=== PATIENT | female | born 1970 | race Caucasian/White ===

== ENCOUNTER 2017-10-23 13:02 | Emergency (ER) | payer OTHER | END 2017-10-23 14:25 | disposition home or self-care (01) | LOC: FTE 13:02 | DX: R21 Rash and other nonspecific skin eruption (principal); I10 Essential (primary) hypertension; F17.210 Nicotine dependence, cigarettes, uncomplicated | CPT/HCPCS: 99282; Z7502 ==

== ENCOUNTER 2017-11-01 14:34 | Inpatient (IN) | payer OTHER ==
[2017-11-01 17:21] LABS: ABNORMAL IP MESSAGE 1; HEMATOCRIT 25.2 % (37.0-47.0); MEAN CORPUSCULAR VOLUME 62.8 fl (82.0-101.0); MEAN PLATELET VOLUME 10.1 fl (7.4-10.4); PLATELET COUNT 449 10^3/UL (140-415); RED BLOOD COUNT 4.01 10^6/ul (4.20-5.40); RED CELL DISTRIBUTION WIDTH 20.8 % (11.5-14.5)
[2017-11-01 17:21] LABS: WHITE BLOOD COUNT 5.3 10^3/ul (4.8-10.8)
[2017-11-01 17:27] LABS: HEMOGLOBIN 6.8 g/dl (12.0-16.0); POSITIVE DIFF @See below
[2017-11-01 17:28] LABS: PATH REVIEW? YES
[2017-11-01 17:40] LABS: ANION GAP 13 (8-16); BLOOD UREA NITROGEN 12 mg/dl (7-20); CALCIUM 9.1 mg/dl (8.4-10.2); CARBON DIOXIDE 27 mmol/L (21-31); CHLORIDE 107 mmol/L (97-110); CREATININE 0.72 mg/dl (0.44-1.00); GLUCOSE 98 mg/dl (70-220); POTASSIUM 3.7 mmol/L (3.5-5.1); SODIUM 143 mmol/L (135-144)
[2017-11-01 18:11] LABS: ADD MAN DIFF? NO; MONOCYTES % 7.1 % (0.0-11.0)
[2017-11-01 18:12] LABS: BASOPHILS % 0.2 % (0.0-2.0); EOSINOPHILS % 1.1 % (0.0-7.0); LYMPHOCYTES # 1.4 10^3/ul (0.8-2.9); MONOCYTE # 0.4 10^3/ul (0.3-0.9); NEUTROPHIL # 3.4 10^3/ul (1.6-7.5)
[2017-11-01] MEDS: LABETALOL 100 MG TAB PO (18:21)
[2017-11-01] MEDS: SOD CHLORIDE 0.9% 250 ML IV (18:26)
[2017-11-01] MEDS ORDERED: ACETAMINOPHEN 325 MG TAB PO (19:30)
[2017-11-01] MEDS ORDERED: ONDANSETRON 4 MG INJ IV ×2 (19:30→21:30)
[2017-11-01] MEDS ORDERED: NACL 0.9% 3 ML SYG IV (21:30)
[2017-11-01] MEDS: METOPROLOL 25 MG TAB PO (23:09)
[2017-11-02] MEDS: HYDROCODONE/APAP (5/325) TAB PO (01:57)
[2017-11-02 05:08] LABS: ADD MAN DIFF? NO
[2017-11-02 05:21] LABS: ABNORMAL IP MESSAGE 1; BASOPHILS % 0.2 % (0.0-2.0); EOSINOPHILS # 0.1 10^3/ul (0.0-0.5); EOSINOPHILS % 2.3 % (0.0-7.0); HEMATOCRIT 27.2 % (37.0-47.0); HEMOGLOBIN 8.1 g/dl (12.0-16.0); LYMPHOCYTES # 1.8 10^3/ul (0.8-2.9); LYMPHOCYTES % 34.8 % (15.0-51.0); MEAN CORPUSCULAR HEMOGLOBIN 19.8 pg (29.0-33.0); MEAN CORPUSCULAR HGB CONC 29.8 g/dl (32.0-37.0); MEAN CORPUSCULAR VOLUME 66.3 fl (82.0-101.0); MEAN PLATELET VOLUME 10.2 fl (7.4-10.4); MONOCYTE # 0.4 10^3/ul (0.3-0.9); MONOCYTES % 7.7 % (0.0-11.0); NEUTROPHIL # 2.8 10^3/ul (1.6-7.5); NEUTROPHILS % 54.6 % (39.0-77.0); PLATELET COUNT 341 10^3/UL (140-415); RED CELL DISTRIBUTION WIDTH 23.4 % (11.5-14.5)
[2017-11-02 05:21] LABS: WHITE BLOOD COUNT 5.2 10^3/ul (4.8-10.8)
[2017-11-02 05:34] LABS: IRON 71 ug/dl (35-150)
[2017-11-02 05:43] LABS: ALANINE AMINOTRANSFERASE 25 IU/L (13-69); ALBUMIN 3.2 g/dl (3.3-4.9); ALBUMIN/GLOBULIN RATIO 0.91; ALKALINE PHOSPHATASE 57 IU/L (42-121); ANION GAP 13 (8-16); ASPARTATE AMINO TRANSFERASE 27 IU/L (15-46); BILIRUBIN,INDIRECT 0.3 mg/dl (0-1.1); BILIRUBIN,TOTAL 0.3 mg/dl (0.2-1.3); BLOOD UREA NITROGEN 14 mg/dl (7-20); CALCIUM 8.8 mg/dl (8.4-10.2); CARBON DIOXIDE 25 mmol/L (21-31); CHLORIDE 109 mmol/L (97-110); CREATININE 0.78 mg/dl (0.44-1.00); GLUCOSE 96 mg/dl (70-220); MAGNESIUM 1.8 mg/dl (1.7-2.5); PHOSPHORUS 4.7 mg/dl (2.5-4.9); SODIUM 143 mmol/L (135-144); TOTAL PROTEIN 6.7 g/dl (6.1-8.1)
[2017-11-02 05:44] LABS: % IRON SATURATION 17 % SAT (22-52); TOTAL IRON BINDING CAPACITY 411 ug/dl (241-421)
[2017-11-02 05:59] LABS: POSITIVE DIFF @See below
[2017-11-02 06:11] LABS: FERRITIN 6.1 ng/ml (6.2-137.0)
[2017-11-02] MEDS: FERROUS SULFATE (EC) 325 MG TAB PO (09:03)
[2017-11-02] MEDS: METOPROLOL 25 MG TAB PO ×2 (09:04→20:29)
[2017-11-02] MEDS: SOD CHLORIDE 0.9% 250 ML IV* (09:38)
[2017-11-02 11:59] LABS: IMMEDIATE SPIN CROSSMATCH 1 4
[2017-11-02] MEDS: traMADol 50 MG TAB PO (16:39)
[2017-11-03 05:04] LABS: ADD MAN DIFF? NO
[2017-11-03 05:18] LABS: WHITE BLOOD COUNT 5.6 10^3/ul (4.8-10.8)
[2017-11-03 05:18] LABS: ABNORMAL IP MESSAGE 1; BASOPHILS % 0.4 % (0.0-2.0); EOSINOPHILS # 0.2 10^3/ul (0.0-0.5); EOSINOPHILS % 3.1 % (0.0-7.0); HEMATOCRIT 36.1 % (37.0-47.0); HEMOGLOBIN 10.9 g/dl (12.0-16.0); LYMPHOCYTES # 1.5 10^3/ul (0.8-2.9); LYMPHOCYTES % 26.9 % (15.0-51.0); MEAN CORPUSCULAR HEMOGLOBIN 20.9 pg (29.0-33.0); MEAN CORPUSCULAR HGB CONC 30.2 g/dl (32.0-37.0); MEAN CORPUSCULAR VOLUME 69.3 fl (82.0-101.0); MEAN PLATELET VOLUME 10.5 fl (7.4-10.4); MONOCYTE # 0.4 10^3/ul (0.3-0.9); MONOCYTES % 7.2 % (0.0-11.0); NEUTROPHIL # 3.5 10^3/ul (1.6-7.5); PLATELET COUNT 381 10^3/UL (140-415); RED BLOOD COUNT 5.21 10^6/ul (4.20-5.40); RED CELL DISTRIBUTION WIDTH 26.5 % (11.5-14.5)
[2017-11-03 05:32] LABS: ANION GAP 14 (8-16); BLOOD UREA NITROGEN 14 mg/dl (7-20); CARBON DIOXIDE 26 mmol/L (21-31); CHLORIDE 107 mmol/L (97-110); GLUCOSE 95 mg/dl (70-220); MAGNESIUM 1.8 mg/dl (1.7-2.5); POTASSIUM 4.2 mmol/L (3.5-5.1); SODIUM 143 mmol/L (135-144)
[2017-11-03 06:38] LABS: POSITIVE DIFF @See below
[2017-11-03] MEDS ORDERED: CEFAZOLIN 1 GM INJ (07:00)
[2017-11-03] MEDS ORDERED: METOCLOPRAMIDE 10 MG INJ (07:00)
[2017-11-03] MEDS ORDERED: DEXAMETHASONE 4 MG/ML 1 ML INJ (07:00)
[2017-11-03] MEDS: METOPROLOL 25 MG TAB PO ×2 (09:00→20:09)
[2017-11-03] MEDS ORDERED: FENTAnyl 50 MCG/ML VIAL IV ×2 (10:00)
[2017-11-03] MEDS ORDERED: MEPERIDINE 25 MG INJ IV (10:00)
[2017-11-03] MEDS ORDERED: DIPHENHYDRAMINE 50 MG INJ IV (10:00)
[2017-11-03] MEDS ORDERED: IPRATROPIUM (NEB) 0.5 MG/2.5 ML AMP HHN (10:00)
[2017-11-03] MEDS ORDERED: HYDROmorphONE 1 MG/5 ML IV SYRINGE IV ×3 (10:00)
[2017-11-03] MEDS ORDERED: LABETALOL HCL 20MG INJ IV (10:00)
[2017-11-03] MEDS ORDERED: FENTAnyl 50 MCG/ML VIAL (15:44)
[2017-11-03] MEDS ORDERED: MIDAZOLAM 1 MG/ML 2 ML INJ (15:45)
[2017-11-03] MEDS ORDERED: ONDANSETRON 4 MG INJ (15:45)
[2017-11-03] MEDS ORDERED: PROPOFOL 20 ML (15:47)
[2017-11-03] MEDS ORDERED: LIDOCAINE 2% (SDV) 5 ML INJ (15:47)
[2017-11-03] MEDS ORDERED: HYDROmorphONE 2 MG/ML SYG (16:21)
[2017-11-03] MEDS: morphine 2 MG INJ IV (18:25)
[2017-11-03] MEDS: hydrALAzine 20 MG INJ IV (19:03)
[2017-11-03] MEDS: ONDANSETRON 4 MG INJ IV (19:10)
[2017-11-03] MEDS: HYDROCODONE/APAP (5/325) TAB PO (20:30)
[2017-11-04] MEDS: ACETAMINOPHEN 325 MG TAB PO (04:44)
[2017-11-04 05:12] LABS: ADD MAN DIFF? NO
[2017-11-04 05:27] LABS: WHITE BLOOD COUNT 7.6 10^3/ul (4.8-10.8)
[2017-11-04 05:27] LABS: ABNORMAL IP MESSAGE 1; BASOPHILS % 0.1 % (0.0-2.0); HEMATOCRIT 40.2 % (37.0-47.0); HEMOGLOBIN 12.3 g/dl (12.0-16.0); LYMPHOCYTES # 0.6 10^3/ul (0.8-2.9); LYMPHOCYTES % 8.5 % (15.0-51.0); MEAN CORPUSCULAR HEMOGLOBIN 21.3 pg (29.0-33.0); MEAN CORPUSCULAR HGB CONC 30.6 g/dl (32.0-37.0); MEAN CORPUSCULAR VOLUME 69.7 fl (82.0-101.0); MEAN PLATELET VOLUME 9.7 fl (7.4-10.4); MONOCYTE # 0.2 10^3/ul (0.3-0.9); MONOCYTES % 2.9 % (0.0-11.0); NEUTROPHIL # 6.7 10^3/ul (1.6-7.5); NEUTROPHILS % 88.2 % (39.0-77.0); PLATELET COUNT 441 10^3/UL (140-415); RED BLOOD COUNT 5.77 10^6/ul (4.20-5.40); RED CELL DISTRIBUTION WIDTH 27.8 % (11.5-14.5)
[2017-11-04 05:54] LABS: POSITIVE DIFF @See below
[2017-11-04] MEDS: METOPROLOL 25 MG TAB PO (08:40)
[2017-11-04] MEDS: HYDROCODONE/APAP (5/325) TAB PO (12:37)
== END 2017-11-04 13:30 | disposition home or self-care (01) | DRG 743 ==
LOC: FTE 14:34 → MS1 19:24
PROC: 0U5B8ZZ Destruction of Endometrium, Via Natural or Artificial Opening Endoscopic (ICD-10-PCS; principal; 2017-11-03 14:00)
PROC: 0UDB8ZX Extraction of Endometrium, Via Natural or Artificial Opening Endoscopic, Diagnostic (ICD-10-PCS; 2017-11-03 14:00)
PROC: 30233N1 Transfusion of Nonautologous Red Blood Cells into Peripheral Vein, Percutaneous Approach (ICD-10-PCS; 2017-11-03 17:13)
PROC: 30233N1 Transfusion of Nonautologous Red Blood Cells into Peripheral Vein, Percutaneous Approach (ICD-10-PCS; 2017-11-03 17:13)
DX: N92.1 Excessive and frequent menstruation with irregular cycle (principal); D50.0 Iron deficiency anemia secondary to blood loss (chronic); D50.9 Iron deficiency anemia, unspecified; D25.9 Leiomyoma of uterus, unspecified; I10 Essential (primary) hypertension; N93.8 Other specified abnormal uterine and vaginal bleeding; N92.0 Excessive and frequent menstruation with regular cycle
CPT/HCPCS: 36430; 76856; 80048; 80053; 82728; 83540; 83735; 84100; 84703; 85025; 86850; 86900; 86901; 86920; 88305; 88331; 99285-25

== ENCOUNTER 2017-11-29 11:31 | Emergency (ER) | payer OTHER ==
[2017-11-29] MEDS: KETOROLAC 60 MG INJ IM (12:18)
== END 2017-11-29 12:45 | disposition home or self-care (01) ==
LOC: FTE 11:31
DX: M25.511 Pain in right shoulder (principal)
CPT/HCPCS: 73030; 73030-RT; 81025; 96372; 99284-25

== ENCOUNTER 2017-12-30 19:35 | Emergency (ER) | payer SELFPAY, OTHER | END 2017-12-31 00:14 | disposition left against medical advice (07) | LOC: FTE 19:35 | DX: Z53.21 Procedure and treatment not carried out due to patient leaving prior to being seen by health care provider (principal) ==

== ENCOUNTER 2018-07-14 20:41 | Emergency (ER) | payer OTHER ==
[2018-07-14] MEDS: morphine 4 MG/ML VIAL IV (00:42)
[2018-07-14] MEDS: ONDANSETRON 4 MG INJ IV (00:42)
[2018-07-14] MEDS: SOD CHLORIDE 0.9% 1,000 ML IV (23:39)
[2018-07-15 00:25] LABS: ADD MAN DIFF? NO
[2018-07-15 00:27] LABS: BASOPHILS % 0.2 % (0.0-2.0); EOSINOPHILS # 0.1 10^3/ul (0.0-0.5); HEMATOCRIT 43.8 % (37.0-47.0); HEMOGLOBIN 14.1 g/dl (12.0-16.0); LYMPHOCYTES # 1.8 10^3/ul (0.8-2.9); LYMPHOCYTES % 35.9 % (15.0-51.0); MEAN CORPUSCULAR HEMOGLOBIN 28.1 pg (29.0-33.0); MEAN CORPUSCULAR HGB CONC 32.2 g/dl (32.0-37.0); MEAN CORPUSCULAR VOLUME 87.4 fl (82.0-101.0); MEAN PLATELET VOLUME 11.1 fl (7.4-10.4); MONOCYTE # 0.3 10^3/ul (0.3-0.9); MONOCYTES % 6.8 % (0.0-11.0); NEUTROPHIL # 2.7 10^3/ul (1.6-7.5); NEUTROPHILS % 54.9 % (39.0-77.0); PLATELET COUNT 318 10^3/UL (140-415); RED BLOOD COUNT 5.01 10^6/ul (4.20-5.40); RED CELL DISTRIBUTION WIDTH 15.3 % (11.5-14.5)
[2018-07-15 00:27] LABS: WHITE BLOOD COUNT 4.9 10^3/ul (4.8-10.8)
[2018-07-15 00:33] LABS: ADD UMIC YES; UR ASCORBIC ACID NEGATIVE (NEGATIVE); UR BACTERIA FEW /HPF (NONE SEEN); UR BILIRUBIN (Dip) NEGATIVE (NEGATIVE); UR BLOOD (Dip) 1+ mg/dL (NEGATIVE); UR CLARITY SLIGHTLY CLOUDY (CLEAR); UR COLOR YELLOW (YELLOW); UR GLUCOSE (Dip) NEGATIVE (NEGATIVE); UR KETONES (Dip) NEGATIVE (NEGATIVE); UR LEUKOCYTE ESTERASE (Dip) TRACE Leu/ul (NEGATIVE); UR MUCUS MANY /HPF (NONE SEEN); UR NITRITE (Dip) NEGATIVE (NEGATIVE); UR RBC 2 /HPF (0-5); UR SPECIFIC GRAVITY (Dip) 1.024 (1.003-1.030); UR SQUAMOUS EPITHELIAL CELL FEW /HPF (FEW); UR TOTAL PROTEIN (Dip) NEGATIVE (NEGATIVE); UR UROBILINOGEN (Dip) 1+ mg/dL (NEGATIVE); UR WBC 3 /HPF (0-5)
[2018-07-15 01:02] LABS: ALANINE AMINOTRANSFERASE 18 IU/L (13-69); ALBUMIN 4.3 g/dl (3.3-4.9); ALBUMIN/GLOBULIN RATIO 1.16; ALKALINE PHOSPHATASE 99 IU/L (42-121); ANION GAP 11 (5-13); ASPARTATE AMINO TRANSFERASE 24 IU/L (15-46); BILIRUBIN,INDIRECT 0.2 mg/dl (0-1.1); BILIRUBIN,TOTAL 0.2 mg/dl (0.2-1.3); BLOOD UREA NITROGEN 12 mg/dl (7-20); CALCIUM 9.6 mg/dl (8.4-10.2); CARBON DIOXIDE 22 mmol/L (21-31); CHLORIDE 111 mmol/L (97-110); CREATININE 0.74 mg/dl (0.44-1.00); Estimated GFR > 60 mL/min (>60); GLUCOSE 101 mg/dl (70-220); LIPASE 119 U/L (23-300); POTASSIUM 3.7 mmol/L (3.5-5.1); SODIUM 144 mmol/L (135-144)
== END 2018-07-15 02:30 | disposition home or self-care (01) ==
LOC: E/R 20:41
DX: R10.9 Unspecified abdominal pain (principal)
CPT/HCPCS: 36415; 71045; 74176; 80053; 81001; 81025; 83690; 85025; 96374; 96375; 99285-25

== ENCOUNTER 2018-10-17 12:44 | Emergency (ER) | payer OTHER ==
[2018-10-17] MEDS: MECLIZINE 12.5 MG TAB PO (14:02)
[2018-10-17 14:28] LABS: ADD MAN DIFF? NO
[2018-10-17 14:29] LABS: WHITE BLOOD COUNT 6.3 10^3/ul (4.8-10.8)
[2018-10-17 14:29] LABS: BASOPHILS % 0.3 % (0.0-2.0); EOSINOPHILS # 0.1 10^3/ul (0.0-0.5); EOSINOPHILS % 1.7 % (0.0-7.0); HEMATOCRIT 42.7 % (37.0-47.0); HEMOGLOBIN 13.7 g/dl (12.0-16.0); LYMPHOCYTES # 1.7 10^3/ul (0.8-2.9); LYMPHOCYTES % 26.7 % (15.0-51.0); MEAN CORPUSCULAR HEMOGLOBIN 29.1 pg (29.0-33.0); MEAN CORPUSCULAR HGB CONC 32.1 g/dl (32.0-37.0); MEAN CORPUSCULAR VOLUME 90.9 fl (82.0-101.0); MEAN PLATELET VOLUME 11.3 fl (7.4-10.4); MONOCYTE # 0.5 10^3/ul (0.3-0.9); MONOCYTES % 8.4 % (0.0-11.0); NEUTROPHILS % 62.7 % (39.0-77.0); PLATELET COUNT 282 10^3/UL (140-415); RED CELL DISTRIBUTION WIDTH 14.4 % (11.5-14.5)
[2018-10-17 14:49] LABS: ANION GAP 9 (5-13); BLOOD UREA NITROGEN 13 mg/dl (7-20); CALCIUM 9.5 mg/dl (8.4-10.2); CARBON DIOXIDE 26 mmol/L (21-31); CHLORIDE 105 mmol/L (97-110); CREATININE 0.61 mg/dl (0.44-1.00); Estimated GFR > 60 mL/min (>60); GLUCOSE 99 mg/dl (70-220); POTASSIUM 3.6 mmol/L (3.5-5.1); SODIUM 140 mmol/L (135-144)
== END 2018-10-17 15:18 | disposition home or self-care (01) ==
LOC: FTE 15:18
DX: I10 Essential (primary) hypertension (principal)
CPT/HCPCS: 36415; 80048; 85025; 93005; 99284-25